=== PATIENT | male | born 1960 | race Caucasian/White ===

== ENCOUNTER 2017-03-06 14:38 | Outpatient (CLI) | payer BC ==
[2017-03-06 15:32] LABS: #Eosinphils 0.1 thou/uL (0.0-0.7); #Lymphocytes 1.2 thou/uL (1.20-3.40); #Monocytes 0.8 thou/uL (0.11-0.59); #Neutrophils 6.6 thou/uL (1.40-6.50); %Basophils 0.5 % (0.0-1.0); %Eosinophils 0.6 % (0.0-10.0); %Lymphocytes 13.8 % (21.0-51.0); %Monocytes 9.4 % (0.0-10.0); %Neutrophils 75.6 % (42.0-75.0); Hemoglobin 15.4 g/dL (14.0-18.0); Mean Corpuscular HGB CONC 32.6 g/dL (32.0-36.0); Mean Corpuscular Hemoglobin 29.3 pg (27.0-31.0); Mean Corpuscular Volume 89.9 fl (80.0-94.0); Mean Platelet Volume 6.6 fL (7.4-10.4); Platelet Count 325 thou/uL (130-400); RBC Distribution Width 12.7 % (11.5-14.5); Red Blood Cell (RBC) Count 5.26 mill/uL (4.70-6.10); White Blood Cell (WBC) Count 8.7 thou/uL (4.8-10.8)
[2017-03-06 15:59] LABS: Anion Gap 9 mmol/L (10-20); BUN (Urea Nitrogen) 16 mg/dL (8.4-25.7); Calc. Creatinine Clearance 0 mL/min (70-130); Calcium 9.8 mg/dL (7.8-10.44); Carbon Dioxide 27 mmol/L (22-29); Chloride 106 mmol/L (98-107); Estimated GFR-MDRD 64; Glucose 86 mg/dL (70-105); Sodium 138 mmol/L (136-145)
== END 2017-03-06 14:39 | disposition home or self-care (01) ==
LOC: LABBT 14:38
PROVIDERS: ATTEND Specialist
DX: Z01.818 Encounter for other preprocedural examination (principal); K40.90 Unilateral inguinal hernia, without obstruction or gangrene, not specified as recurrent
CPT/HCPCS: 80048; 85025; 93005; 93010

== ENCOUNTER 2017-03-13 09:38 | Day surgery (SDC) | payer BC ==
[2017-03-06 14:56] VITALS: BMI 29.1
[2017-03-13] MEDS ORDERED: Ondansetron HCl/PF 4 MG/2 ML Vial ONE (10:25)
[2017-03-13] MEDS ORDERED: PHENYLEPHRINE-NS 100 MCG/ML 10 ML SYRINGE ONE (10:25)
[2017-03-13] MEDS ORDERED: Dexamethasone 20 MG/5 ML VIAL ONE (10:25)
[2017-03-13] MEDS ORDERED: Lidocaine 1% PF 5 ML VIAL ONE (10:25)
[2017-03-13] MEDS ORDERED: PROPOFOL 200 MG/20 ML VIAL ONE (10:25)
[2017-03-13] MEDS ORDERED: Glycopyrrolate 0.2 MG/ML 5 ML SYRINGE ONE (10:25)
[2017-03-13] MEDS ORDERED: Ketorolac Tromethamine 30 MG/ML VIAL ONE (12:02)
[2017-03-13] MEDS ORDERED: CEFAZOLIN/Water 2 GM/20 ML SYRINGE ONE (12:03)
[2017-03-13] MEDS ORDERED: Bupivacaine/Epinephrine 0.25% 30 ML VIAL ONE (14:07)
[2017-03-13] MEDS ORDERED: Fentanyl 100 MCG/2 ML VIAL ONE (14:58)
[2017-03-13] MEDS ORDERED: HYDROmorphone 0.5 MG/0.5 ML SYRINGE ONE (14:59)
[2017-03-13] MEDS ORDERED: HYDROcodone/Acetaminophen 5/325 mg Tablet ONE (18:43)
--- NOTE | 2017-03-14 11:03 | OP ---
DATE OF PROCEDURE: 03/13/2017 PREOPERATIVE DIAGNOSIS: Right inguinal hernia. POSTOPERATIVE DIAGNOSIS: Right inguinal hernia, indirect. OPERATION PERFORMED: Robotic right inguinal hernia repair with ProGrip mesh patch. ANESTHESIA: General endotracheal. INDICATIONS: The patient is a 56-year-old white male. He presents with an obvious diagnosis of righ t inguinal hernia and is taken to the operating room at this time for robotic repair. OPERATIVE PROCEDURE IN DETAIL: Informed consent was obtained. The patient was taken to the operatin g room where general endotracheal anesthesia was obtained with the patient in supine position. Abdom en was prepped with ChloraPrep and draped in sterile fashion after Elias catheter was placed. Local anesthetic was infiltrated using 0.25% Marcaine with epinephrine. A 12 mm supraumbilical incision wa s created through which a Veress needle was passed into the peritoneal cavity and pneumoperitoneum wa s established using carbon dioxide up to a pressure of 15 mmHg. An 8 mm right lateral incision was c reated and an 8 mm robotic port was passed through this incision. Using this incision, I inspected t he area of the umbilicus. There appeared to be a small umbilical hernia. I dissected through the um bilical incision down to the hernia and passed the 12 mm port through the center of the hernia defect . A final 8 mm port was placed in the left abdomen as well. The robot was docked to the camera and the ports and the operation was continued from the robotic console. Examination of the left groin revealed no evidence of a left inguinal hernia. On the right side, the re was an obvious large indirect inguinal hernia. A transverse peritoneal incision was created sever al centimeters superior to the hernia. Preperitoneal dissection was carried out down into the pelvis . On the medial aspect, dissection was carried down to the pubic tubercle and Xander's ligament. La terally, the dissection was carried out to give space for mesh placement. The central portion of the dissection, patient had a large hernia sac extending down towards the scrotum. I carefully dissecte d the hernia sac off the underlying cord structures without damaging the cord structures. After a le ngthy dissection, I was able to mobilize the hernia sac completely. I then continued to mobilize the peritoneum off the cord structures and the vas deferens. When the entire area was adequately dissec sabrina, a ProGrip mesh patch was obtained folded in the appropriate fashion and passed into the preperit esqueda space. It was positioned such that the medial aspect was extended beyond the pubic tubercle. The mesh patch was opened in the usual fashion, which gave excellent coverage over the hernia defect. When it was appropriately situated, the peritoneum was closed using a running suture of 3-0 Strataf ix. There had been no significant blood loss during the operation. There were no complications. Th e 12 mm fascial defect was closed with 0 Vicryl suture using a GraNee needle. All ports and instrume nts were removed under direct vision. Pneumoperitoneum was carefully evacuated. Quarter percent Mar parris with epinephrine was infiltrated in each port site and skin edges approximated with 4-0 Monocry l subcuticular suture. Dermabond was placed externally. There were no complications. The patient t olerated the procedure well and was taken to recovery room in stable condition.
== END 2017-03-13 19:20 | disposition home or self-care (01) ==
LOC: SDC 09:38
PROVIDERS: ATTEND Specialist
PROC: 0YU54JZ Supplement Right Inguinal Region with Synthetic Substitute, Percutaneous Endoscopic Approach (ICD-10-PCS; principal; 2017-03-13)
DX: K40.90 Unilateral inguinal hernia, without obstruction or gangrene, not specified as recurrent (principal); K42.9 Umbilical hernia without obstruction or gangrene; I10 Essential (primary) hypertension; E78.5 Hyperlipidemia, unspecified; Z82.49 Family history of ischemic heart disease and other diseases of the circulatory system
CPT/HCPCS: J0131; J1100; J1170; J1885; J2001; J2405; J2704; J3010